=== PATIENT | female | born 1940 | race Caucasian/White ===

== ENCOUNTER 2020-07-22 11:21 | Emergency (ER) | payer OTHER ==
[~2020-07-22] VITALS: Ht 157.5 cm; Wt 90.7 kg
[2020-07-22 11:21] VITALS: BP_SYST 165
[~2020-07-22 11:21] MED LIST: AMLO10TA88 PO; CARI350T27 PO; CARV3.1246 PO; DICY20TA55 PO; GLU500 PO; HYDR-1189 PO; IBUP-786 PO; LUMEYE OP; METO10TA3 PO; OMEP40CA13 PO; PRAV40TA PO; PRO40 PO; SUCR1TAB PO; VALS320T2 PO; VENL75TA4 PO
--- NOTE | 2020-07-22 11:21 | NUR ---
BROUGHT INTO TRIAGE TENT AND TRIAGED. AWAITING ER BED AVAILABILITY
[2020-07-22] MEDS ORDERED: NACL 0.9% 1,000 ML IV ONE (12:15)
[2020-07-22] MEDS ORDERED: MORPHINE 4 MG/ML INJ. SYRINGE IVP ONE (12:15)
[2020-07-22] MEDS ORDERED: ONDANSETRON HCL 4 MG/2 ML VIAL IVP ONE (12:15)
[2020-07-22 13:37] LABS: BASOPHILS % (AUTO) 0.8 % (0.0-2.0); EOSINOPHILS % (AUTO) 0.2 % (0.0-4.0); HEMATOCRIT 42.4 % (36-48); HEMOGLOBIN 13.9 g/dL (12.0-16.0); LYMPHOCYTES % (AUTO) 18.8 % (20.5-51.5); MEAN CORPUSCULAR HEMOGLOBIN 30 pg (27-31); MEAN CORPUSCULAR HGB CONC 33 % (32-36); MEAN CORPUSCULAR VOLUME 91 fL (79.0-98.0); MONOCYTES # (AUTO) 0.2 K/uL (0.0-1.0); MONOCYTES % (AUTO) 4.1 % (1.7-9.3); NEUTROPHILS # (AUTO) 4.2 K/uL (1.8-7.7); NEUTROPHILS % (AUTO) 76.1 % (40.0-70.0); PLATELET COUNT (AUTO) 222 K/uL (130-430); RED BLOOD CELL COUNT(AUTO) 4.66 MIL/uL (4.2-6.2); WHITE BLOOD COUNT (AUTO) 5.5 K/uL (4.8-10.8)
[2020-07-22 13:42] LABS: ANION GAP 8 (5-15); CALCIUM 9.4 mg/dL (8.4-11.0); CHLORIDE 102 mmol/L (98-107); CREATININE 0.89 mg/dL (0.55-1.30); GLUCOSE 160 mg/dL (70-99); POTASSIUM 3.6 mmol/L (3.5-5.1); SODIUM SERUM 138 mmol/L (136-145); UREA NITROGEN, BLOOD 12 mg/dL (8-21)
[2020-07-22 13:48] LABS: ALANINE AMINOTRANSFERASE 16 U/L (12-78); ALBUMIN 3.8 g/dL (3.4-4.8); ASPARTATE AMINOTRANSFERASE 17 U/L (10-37); LIPASE 29 U/L (73-393); TOTAL BILIRUBIN 0.4 mg/dL (0.0-1.0)
--- NOTE | 2020-07-22 15:30 | NUR ---
Placed in HALLWAY BED 2 . Side rails up. Report given to CARRIE GREER.
--- NOTE | 2020-07-22 15:45 | NUR ---
Pt walked in to ER with c/o abdominal pain 9/10 x3 days, reports n/v also. V/S stable, pt is afebrile. Currently resting in hallway bed.
[2020-07-22] MEDS ORDERED: ONDANSETRON HCL 4 MG/2 ML VIAL ONE (16:43)
[2020-07-22] MEDS ORDERED: MORPHINE 4 MG/ML INJ. SYRINGE ONE (16:44)
--- NOTE | 2020-07-22 16:55 | NUR ---
ER Dr. Morocho at bedside examining patient.
--- NOTE | 2020-07-22 17:00 | NUR ---
# 22 gauge angiocath placed to Left Hand. Use of asceptic technique. Opsite placed over site. Blood return noted. Flushed with 10 cc of normal saline. No evidence of infiltration noted. Patient tolerated well.
--- NOTE | 2020-07-22 19:18 | NUR ---
Care of patient endorsed to ZOEY So. Pt currently resting in hallway bed, no distress noted.
--- NOTE | 2020-07-22 19:20 | NUR ---
PT REPORT RECEIVED FROM SPLITTER HANDZOEY BUTLER PT RESTING QUIETLY VITAL SIGNS STABLE WILL CONTUINUE TO MONITOR
--- NOTE | 2020-07-22 19:50 | NUR ---
PT TAKEN TO CT BY RONA VIA WHEEL CHAIR
--- NOTE | 2020-07-22 20:06 | NUR ---
PT BACK FROM CT IN BED RESTING QUIETLY VITAL SIGNS STABLE WILL CONTINUE TO MONITOR
--- NOTE | 2020-07-22 20:17 | NUR ---
PT AMBULATED TO BATHROOM WITH ASSISTANCE URINE SAMPLE COLLECTED ADN SENT TO LAB AWAITING RESULTS
[2020-07-22 20:52] LABS: BILIRUBIN,URINE 1+ (NEGATIVE); BLOOD, URINE NEGATIVE (NEGATIVE); COLOR,URINE YELLOW (YELLOW); GLUCOSE,URINE NEGATIVE (NEGATIVE); KETONES,URINE 1+ (NEGATIVE); LEUKOCYTE ESTERASE ,URINE NEGATIVE (NEGATIVE); NITRITE, URINE NEGATIVE (NEGATIVE); PH,URINE 6.5 (5.0-8.0); PROTEIN URINE 1+ (NEGATIVE); UROBILINOGEN,URINE 0.2 (0.2-1.0)
[2020-07-22 20:59] LABS: CLARITY/URINE SLIGHTLY HAZY (CLEAR)
[2020-07-22 21:03] LABS: BACTERIA,URINE FEW /HPF (None Seen); MUCUS,URINE 2+ /LPF (None Seen); RBC,URINE 0-3 /HPF (0-3)
--- NOTE | 2020-07-22 21:10 | NUR ---
Patient given written and verbal discharge instructions and verbalizes understanding. ER MD YANES discussed with patient the results and treatment provided. Patient in stable condition. ID arm band removed. IV catheter removed intact and dressing applied, no active bleeding. Patient educated on pain management and to follow up with PMD. Pain Scale 0/10. Opportunity for questions provided and answered. Medication side effect fact sheet provided.
[2020-07-22 21:13] VITALS: BP_SYST 165
== END 2020-07-22 21:10 | disposition home or self-care (01) ==
LOC: SED 11:21
DX: K59.00 Constipation, unspecified (principal); R10.9 Unspecified abdominal pain; I10 Essential (primary) hypertension; E11.9 Type 2 diabetes mellitus without complications; E78.5 Hyperlipidemia, unspecified; Z90.49 Acquired absence of other specified parts of digestive tract; Z86.73 Personal history of transient ischemic attack (TIA), and cerebral infarction without residual deficits; Z79.899 Other long term (current) drug therapy; Z88.6 Allergy status to analgesic agent
CPT/HCPCS: 36415; 74021; 74176; 76376; 80053; 81000; 83690; 85025; 96361; 96374; 96375; 99285; J2270; J2405; J7030

== ENCOUNTER 2021-11-07 16:43 | Emergency (ER) | payer MEDICARE ==
[~2021-11-07] VITALS: Ht 157.5 cm; Wt 95.3 kg
[~2021-11-07 16:43] MED LIST changes: -AMLO10TA88 PO; +ATOR40TA68 PO; -CARI350T27 PO; -CARV3.1246 PO; +COR25 PO; +DICL20GE TP; -DICY20TA55 PO; +GABA-331 PO; -GLU500 PO; -HYDR-1189 PO; +HYDR-3919 PO; -IBUP-786 PO; +INSU100V9 SQ; +ISOS60TA71 PO; -LUMEYE OP; -METO10TA3 PO; -OMEP40CA13 PO; +PIOG30TA70 PO; -PRAV40TA PO; -SUCR1TAB PO; -VALS320T2 PO; -VENL75TA4 PO
--- NOTE | 2021-11-07 16:50 | NUR ---
Placed in room 6 . Placed on telemetry monitor, blood pressure machine and pulse oximeter. To gown for exam. Side rails up.
--- NOTE | 2021-11-07 16:52 | NUR ---
PT BROUGHT TO ER BY DAUGHTER FROM HOME BY PRIVATE VEHICLE. PT EXPERIENCING GENERALIZE WEEK. PT COMPLAINED OF ABDOMINAL PAIN AND IS EXPERIENCING DIARRHEA PT VS ARE WITHIN NORMAL LIMITS. PT STATED SHE IS EXP PAIN 7/10 IN HER ABDOMEN SHE HAS HAD APX 7 BM TODA. PT IN BED RESTING WITH BED LOWERED AND LOCKED AND SIDE RAILS UP.
[2021-11-07 16:55] VITALS: BP_SYST 166
--- NOTE | 2021-11-07 16:57 | NUR ---
DR ACOSTA SUBMITED ORDERS FOR PATIENT
[2021-11-07] MEDS ORDERED: ONDANSETRON 4 MG ODT TAB PO ONE (17:00)
[2021-11-07] MEDS ORDERED: HYDROcodone/ACETAMIN 7.5-325 MG TAB PO ONE (17:00)
--- NOTE | 2021-11-07 17:02 | NUR ---
Patient transported to radiology via WC, accompanied by STAFF.
[2021-11-07 17:45] LABS: ANION GAP 8 (5-15); CALCIUM 9.1 mg/dL (8.4-11.0); CHLORIDE 98 mmol/L (98-107); CREATININE 0.98 mg/dL (0.55-1.30); GLUCOSE 154 mg/dL (70-99); SODIUM SERUM 133 mmol/L (136-145); UREA NITROGEN, BLOOD 19 mg/dL (8-21)
[2021-11-07 18:00] LABS: BASOPHILS % (AUTO) 0.4 % (0.0-2.0); EOSINOPHILS % (AUTO) 0.1 % (0.0-4.0); HEMATOCRIT 37.8 % (36-48); HEMOGLOBIN 12.4 g/dL (12.0-16.0); LYMPHOCYTES # (AUTO) 1.1 K/uL (1.0-5.5); LYMPHOCYTES % (AUTO) 25.2 % (20.5-51.5); MEAN CORPUSCULAR HEMOGLOBIN 29 pg (27-31); MEAN CORPUSCULAR HGB CONC 33 % (32-36); MEAN CORPUSCULAR VOLUME 89 fL (79.0-98.0); MONOCYTES # (AUTO) 0.4 K/uL (0.0-1.0); NEUTROPHILS # (AUTO) 2.9 K/uL (1.8-7.7); NEUTROPHILS % (AUTO) 65.3 % (40.0-70.0); PLATELET COUNT (AUTO) 214 K/uL (130-430); RED BLOOD CELL COUNT(AUTO) 4.25 MIL/uL (4.2-6.2); RED CELL DISTRIBUTION WIDTH 15.1 % (9.0-15.0); WHITE BLOOD COUNT (AUTO) 4.5 K/uL (4.8-10.8)
[2021-11-07 18:04] LABS: ALANINE AMINOTRANSFERASE 23 U/L (12-78); ALBUMIN 3.9 g/dL (3.4-4.8); AMYLASE 26 U/L (0-100); ASPARTATE AMINOTRANSFERASE 26 U/L (10-37); LIPASE 58 U/L (73-393); TOTAL BILIRUBIN 0.5 mg/dL (0.0-1.0)
[2021-11-07 18:09] LABS: C-REACTIVE PROTEIN QUANT < 0.2 mg/dL (0-0.5)
--- NOTE | 2021-11-07 18:37 | NUR ---
PT CURRENTLY UNABLE TO VOID, MADE AWARE
[2021-11-07] MEDS ORDERED: HYDR-3917 PO (18:46)
[2021-11-07] MEDS ORDERED: ONDA-8 TL (18:46)
[2021-11-07 19:15] VITALS: BP_SYST 166
--- NOTE | 2021-11-07 19:17 | NUR ---
Patient given written and verbal discharge instructions and verbalizes understanding. ER MD discussed with patient the results and treatment provided. Patient in stable condition. ID arm band removed. Rx of NORCO AND ZOFRAN given. Patient educated on pain management and to follow up with PMD. Pain Scale 0/10. Opportunity for questions provided and answered. Medication side effect fact sheet provided.
== END 2021-11-07 19:15 | disposition home or self-care (01) ==
LOC: SED 16:43
DX: R10.84 Generalized abdominal pain (principal); F19.230 Other psychoactive substance dependence with withdrawal, uncomplicated; E11.9 Type 2 diabetes mellitus without complications; I10 Essential (primary) hypertension; Z88.5 Allergy status to narcotic agent; Z88.6 Allergy status to analgesic agent; Z79.899 Other long term (current) drug therapy
CPT/HCPCS: 36415; 74176; 76376; 80053; 82150; 82962; 83605; 83690; 85025; 86140; 99284; Q0162

== ENCOUNTER → 2021-12-16 | Emergency (ER) | payer MEDICARE ==
[~2021-12-16] VITALS: Ht 160 cm; Wt 95.3 kg
[~2021-12-16] MED LIST changes: +DICY10CA13 PO; +FAMO-132 PO; +FAMO20TA8 PO; +HYDR-3917 PO; +KETOROLAC TROMETHAMINE 30 MG VIAL IVP ONE; +KETOROLAC TROMETHAMINE 60 MG/2 ML VIAL IM ONE; +LOPE2CAP PO; +NACL 0.9% 1,000 ML IV ONE; +ONDA-8 TL
[2021-12-16 15:36] VITALS: BP_SYST 140
[2021-12-16 16:39] LABS: HEMOGLOBIN 13.1 g/dL (12.0-16.0); MONOCYTES # (AUTO) 0.4 K/uL (0.0-1.0); RED CELL DISTRIBUTION WIDTH 15.7 % (9.0-15.0)
[2021-12-16 16:41] LABS: ANION GAP 11 (5-15); CALCIUM 9.2 mg/dL (8.4-11.0); CHLORIDE 100 mmol/L (98-107); CREATININE 1.05 mg/dL (0.55-1.30); GLUCOSE 178 mg/dL (70-99); POTASSIUM 3.3 mmol/L (3.5-5.1); SODIUM SERUM 136 mmol/L (136-145); UREA NITROGEN, BLOOD 30 mg/dL (8-21)
[2021-12-16 16:44] LABS: BASOPHILS % (AUTO) 0.4 % (0.0-2.0); EOSINOPHILS % (AUTO) 0.1 % (0.0-4.0); HEMATOCRIT 39.1 % (36-48); LYMPHOCYTES # (AUTO) 1.1 K/uL (1.0-5.5); LYMPHOCYTES % (AUTO) 17.6 % (20.5-51.5); MEAN CORPUSCULAR HEMOGLOBIN 30 pg (27-31); MEAN CORPUSCULAR HGB CONC 34 % (32-36); MEAN CORPUSCULAR VOLUME 88 fL (79.0-98.0); MONOCYTES % (AUTO) 6.5 % (1.7-9.3); NEUTROPHILS # (AUTO) 4.6 K/uL (1.8-7.7); NEUTROPHILS % (AUTO) 75.4 % (40.0-70.0); PLATELET COUNT (AUTO) 221 K/uL (130-430); RED BLOOD CELL COUNT(AUTO) 4.45 MIL/uL (4.2-6.2)
[2021-12-16 16:47] LABS: ALANINE AMINOTRANSFERASE 64 U/L (12-78); ALBUMIN 3.5 g/dL (3.4-4.8); ASPARTATE AMINOTRANSFERASE 55 U/L (10-37); LIPASE 36 U/L (73-393); TOTAL BILIRUBIN 0.4 mg/dL (0.0-1.0)
--- NOTE | 2021-12-16 16:57 | NUR ---
Placed in room 02 . Placed on engine monitor, blood pressure machine and pulse oximeter. To gown for exam. Side rails up. Report given to ZOEY Silva
[2021-12-16 17:00] VITALS: BP_SYST 145
--- NOTE | 2021-12-16 17:00 | NUR ---
ER at bedside examining patient.
--- NOTE | 2021-12-16 17:15 | NUR ---
RECEIVED PT IN BED #2 FROM HOME WITH CC OF ABDOMINAL PAIN AND NAUSEA. PT IS STABLE, NAD,VSS,AAOx4. PT AWAITING DISPOSITION WITH PLAN OF CARE.
--- NOTE | 2021-12-16 18:11 | NUR ---
# 22 gauge angiocath placed to right hand. Use of asceptic technique. Opsite placed over site. Blood return noted. Flushed with 10 cc of normal saline. No evidence of infiltration noted. Patient tolerated well.
--- NOTE | 2021-12-26 13:37 | NUR ---
ADDENDUM: NACL STOP TIME 1905
== END | disposition home or self-care (01) ==
LOC: SED 15:25
DX: R19.7 Diarrhea, unspecified (principal); R10.13 Epigastric pain; E78.5 Hyperlipidemia, unspecified; E11.9 Type 2 diabetes mellitus without complications; I10 Essential (primary) hypertension; K52.9 Noninfective gastroenteritis and colitis, unspecified; Z88.5 Allergy status to narcotic agent; Z95.0 Presence of cardiac pacemaker; Z79.899 Other long term (current) drug therapy; Z79.4 Long term (current) use of insulin
CPT/HCPCS: 36415; 74176; 76376; 80053; 83605; 83690; 85025; 87040; 96360; 96372; 99284; J1885; J7030

== ENCOUNTER 2022-03-16 20:17 | Emergency (ER) | payer MEDICARE ==
[~2022-03-16] VITALS: Ht 152.4 cm; Wt 95.3 kg
[~2022-03-16 20:17] MED LIST changes: -KETOROLAC TROMETHAMINE 30 MG VIAL IVP ONE; -KETOROLAC TROMETHAMINE 60 MG/2 ML VIAL IM ONE; -NACL 0.9% 1,000 ML IV ONE
[2022-03-16 20:31] VITALS: BP_SYST 89
[2022-03-16] MEDS ORDERED: NACL 0.9% 1,000 ML IV ONE (21:15)
--- NOTE | 2022-03-16 21:25 | NUR ---
81 Y/O F, ambulatory from home with c/o Lower abdominal pain x 1 week which has progressed today. Reports history of colitis. Denies any N/V, SOB, Fever. Arrived to ED in no acute distress. breathing adequately on RA. Family at bedside.
--- NOTE | 2022-03-16 21:28 | NUR ---
ER at bedside examining patient.
--- NOTE | 2022-03-16 21:30 | NUR ---
# 20 gauge angiocath placed to L HAND. Use of asceptic technique. Opsite placed over site. Blood return noted. Flushed with 10 cc of normal saline. No evidence of infiltration noted. Patient tolerated well.
[2022-03-16 21:42] LABS: BASOPHILS % (AUTO) 0.5 % (0.0-2.0); EOSINOPHILS % (AUTO) 0.7 % (0.0-4.0); HEMATOCRIT 35.8 % (36-48); LYMPHOCYTES # (AUTO) 0.9 K/uL (1.0-5.5); MEAN CORPUSCULAR VOLUME 88 fL (79.0-98.0); MONOCYTES # (AUTO) 0.5 K/uL (0.0-1.0); MONOCYTES % (AUTO) 10.3 % (1.7-9.3); NEUTROPHILS # (AUTO) 3.8 K/uL (1.8-7.7); NEUTROPHILS % (AUTO) 71.5 % (40.0-70.0); PLATELET COUNT (AUTO) 225 K/uL (130-430); RED BLOOD CELL COUNT(AUTO) 4.05 MIL/uL (4.2-6.2); RED CELL DISTRIBUTION WIDTH 15.4 % (9.0-15.0); WHITE BLOOD COUNT (AUTO) 5.3 K/uL (4.8-10.8)
[2022-03-16 22:19] LABS: ANION GAP 9 (5-15); CALCIUM 9.9 mg/dL (8.4-11.0); CHLORIDE 103 mmol/L (98-107); CREATININE 1.12 mg/dL (0.55-1.30); GLUCOSE 129 mg/dL (70-99); POTASSIUM 4.3 mmol/L (3.5-5.1); SODIUM SERUM 138 mmol/L (136-145); UREA NITROGEN, BLOOD 17 mg/dL (8-21)
[2022-03-16 22:27] LABS: ALANINE AMINOTRANSFERASE 13 U/L (12-78); ALBUMIN 3.2 g/dL (3.4-4.8); ASPARTATE AMINOTRANSFERASE 24 U/L (10-37); LIPASE 31 U/L (73-393); TOTAL BILIRUBIN 0.4 mg/dL (0.0-1.0)
--- NOTE | 2022-03-16 23:07 | NUR ---
COVID SWAB SENT TO LAB.
[2022-03-17 00:39] LABS: BILIRUBIN,URINE 2+ (NEGATIVE); BLOOD, URINE TRACE (NEGATIVE); CLARITY/URINE HAZY (CLEAR); COLOR,URINE YELLOW (YELLOW); GLUCOSE,URINE NEGATIVE (NEGATIVE); KETONES,URINE 1+ (NEGATIVE); LEUKOCYTE ESTERASE ,URINE TRACE (NEGATIVE); NITRITE, URINE NEGATIVE (NEGATIVE); PROTEIN URINE 1+ (NEGATIVE)
[2022-03-17 00:52] LABS: BACTERIA,URINE RARE /HPF (None Seen); RBC,URINE 0-3 /HPF (0-3); WBC,URINE 0-3 /HPF (0-3)
[2022-03-17 00:53] LABS: MUCUS,URINE 1+ /LPF (None Seen)
[2022-03-17] MEDS ORDERED: CEPH-548 PO (01:04)
[2022-03-17] MEDS ORDERED: ONDA-8 TL (01:04)
[2022-03-17] MEDS ORDERED: ONDANSETRON HCL 4 MG/2 ML VIAL IVP ONE (01:15)
[2022-03-17] MEDS ORDERED: cefTRIAXone 1 GM in D5W 50 ML IV ONE (01:15)
[2022-03-17] MEDS ORDERED: cefTRIAXone 1 GM VIAL ONE (01:44)
[2022-03-17] MEDS ORDERED: ONDANSETRON HCL 4 MG/2 ML VIAL ONE (01:46)
[2022-03-17 02:35] VITALS: BP_SYST 134
--- NOTE | 2022-03-17 02:38 | NUR ---
Patient given written and verbal discharge instructions and verbalizes understanding. ER MD Da Silva discussed with patient the results and treatment provided. Patient in stable condition. ID arm band removed. IV catheter removed intact and dressing applied, no active bleeding. Cephalexin and zofran sent to pharmacy of choice. Patient educated on pain management and to follow up with PMD. Pain Scale 0/10. Opportunity for questions provided and answered. Medication side effect fact sheet provided.
[2022-03-17 08:50] LABS: HEMOGLOBIN 11.4 g/dL (12.0-16.0); MEAN CORPUSCULAR HEMOGLOBIN 29 pg (27-31); MEAN CORPUSCULAR HGB CONC 32 % (32-36)
== END 2022-03-17 02:38 | disposition home or self-care (01) ==
LOC: SED 20:17
DX: N39.0 Urinary tract infection, site not specified (principal); R10.30 Lower abdominal pain, unspecified; E11.9 Type 2 diabetes mellitus without complications; I10 Essential (primary) hypertension; E78.5 Hyperlipidemia, unspecified; Z88.5 Allergy status to narcotic agent; Z88.6 Allergy status to analgesic agent; Z79.899 Other long term (current) drug therapy; Z20.822 Contact with and (suspected) exposure to COVID-19
CPT/HCPCS: 99285; 74176; 96361; 87426; 80053; 81000; 83690; 85025; 87040; 36415; 93005; 76376; 83605; 96365; 96375; J7030; J0696; J2405